=== PATIENT | male | born 1945 | race Caucasian/White ===

== ENCOUNTER 2020-05-04 04:27 | Outpatient (CLI) | payer BC, SELFPAY ==
[2020-05-04 18:08] LABS: SARS-CoV-2 RNA PCR Negative
== END 2020-05-04 04:28 | disposition home or self-care (01) ==
LOC: ANHCOVIDDT 04:27
PROVIDERS: Visit Provider Internal Medicine Gastroenterology
DX: Z01.812 Encounter for preprocedural laboratory examination (principal); Z11.59 Encounter for screening for other viral diseases
CPT/HCPCS: 87635; C9803; U0003

== ENCOUNTER 2020-05-07 00:37 | Day surgery (SDC) | payer BC, SELFPAY ==
[2020-05-02 10:57] VITALS: BMI 28.0
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
[2020-05-07] MEDS: LACTATED RINGERS 1,000 ML 150 ML IV CONT (09:22)
[2020-05-07 09:24] VITALS: BP 180/98; PULSE 73; RESP 16; TEMP 36.8; O2SAT 97
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
--- NOTE | 2020-05-07 10:25 | ECG_ITS ---
Measurements Intervals [place] Rate: 81 P: TX: 0 QRS: 4 QRSD: 104 T: 20 QT: 380 QTc: 443 Interpretive Statements ATRIAL FLUTTER/TACHYCARDIA INFERIOR INFARCT, AGE INDETERMINATE ABNORMAL ECG Electronically Signed On 05-07-2020 11:15:50 CDT by Bertrand Arias D.O.
[2020-05-07 10:31] VITALS: BP 103/70; PULSE 160; RESP 16; O2SAT 98
--- NOTE | 2020-05-07 10:40 | SUR.PHASEII ---
PATIENTS , [facility] CURRENTLY AT BEDSIDE.
[2020-05-07 10:41] VITALS: BP 139/89; PULSE 159; RESP 14; O2SAT 99
--- NOTE | 2020-05-07 10:46 | WPDANESPN ---
Anes - Prog Note Post-Op Date/Time: 05/07/20 10:46 Cardiovascular status: other (new onset aflutter rate controlled hemodynamically stable) Respiratory status: normal Airway patency: baseline Mental status: baseline Post-Op hydration status: normal Vital Signs: Last Vital Signs Temp 36.8 C 05/07/20 09:24 Pulse 160 H 05/07/20 10:31 Resp 16 05/07/20 10:31 BP 103/70 05/07/20 10:31 Pulse Ox 98 05/07/20 10:31 I/O: Intake & Output 05/06/20 05/07/20 05/07/20 23:59 07:59 15:59 Intake Total 100 Balance 100 EKG Aflutter rate 81 Post-procedural complaints: none Patient Feedback: Patient satisfied with anesthetic care. Other Findings: Discussed new onset aflutter with Dr. Doe from Cardiology and Dr. York. Dr. Doe recommended and will arrange f/u as outpt since rate controlled and hemodynamically stable. I ordered BMP, Ca, Mg, Phos, TSH.
--- NOTE | 2020-05-07 10:48 | SUR.PHASEII ---
LAMIN [facility] INTO [facility] -[phone]
[2020-05-07 10:51] VITALS: BP 128/87; PULSE 65; RESP 21; O2SAT 97
--- NOTE | 2020-05-07 10:52 | SUR.PHASEII ---
DR. ZAPATA IN TALKING WITH PATIENT AND [facility]. CARDIOLOGY WAS CONSULTED, DR. ZAPATA TOLD TO HAVE PATIENT FOLLOW UP NEXT WEEK WITH DR. MONTANO. DR. VASQUEZ OFFICE NUMBER GIVEN TO PATIENT AND PUT ON DISCHARGE PAPERWORK.
[2020-05-07 11:01] VITALS: BP 154/92; PULSE 62; RESP 14; O2SAT 97
[2020-05-07 11:05] LABS: Blood Urea Nitrogen 11 mg/dL (9-20); Calcium 8.9 mg/dL (8.4-10.2); Carbon Dioxide 27 mmol/L (22-30); Chloride 107 mmol/L (98-107); Estimated CRCL calculation 64 ml/min; Estimated Glomerular Filt Rate > 60; Glucose 93 mg/dL (75-110); Magnesium 2.2 mg/dL (1.6-2.3); Phosphorus 3.6 mg/dL (2.5-4.5); Sodium 139 mmol/L (137-145)
[2020-05-07 11:11] VITALS: BP 153/95; PULSE 64; RESP 14; O2SAT 98
--- NOTE | 2020-05-07 11:21 | SUR.PHASEII ---
DR. ZAPATA CALLED TO MAKE AWARE THAT ALL BUT [address] ZAPATA STATED THAT WE DIDN'T NEED THAT RESULT TO LET PATIENT GO HOME.
== END 2020-05-07 11:30 | disposition home or self-care (01) ==
PROVIDERS: Anesthesiology; Visit Provider Internal Medicine Gastroenterology
PROC: 0DJD8ZZ Inspection of Lower Intestinal Tract, Via Natural or Artificial Opening Endoscopic (ICD-10-PCS; CPT 45378; principal; 2020-05-07 10:30)
DX: Z12.11 Encounter for screening for malignant neoplasm of colon (principal); K64.8 Other hemorrhoids; Z86.010 Personal history of colon polyps; K21.9 Gastro-esophageal reflux disease without esophagitis; I10 Essential (primary) hypertension
CPT/HCPCS: G0105; 36415; 80048; 83735; 84100; 84443; 93005; J2704; J7120